=== PATIENT | female | born 1970 | race Two or more races ===

== ENCOUNTER 2025-03-21 09:00 | Outpatient (RCR) | payer MEDICAID, SELFPAY ==
--- NOTE | 2025-03-19 10:44 | PT.OIERPT ---
PT OP Initial Eval Patient Information Outpatient Physical Therapy Treatment Date: 03/19/25 Visit Reasons: left knee pain Medical Diagnosis: M17.12 Treatment Dx #1: L knee pain Start of Care: 03/19/25 Date of Onset: 1 yr ago Smoking Status Smoking Status: Never smoker Initial Assessment Subjective: Pt is 54 yr old female who reports L knee pain x1 yr. When it first happened she couldn't put weight on the L knee for a few days and she used crutches and an immobilizer brace. Increased pain with full extension, walking and she limps to not put full weight through the knee. PMH: DM Imaging: Mild narrowing medial joint space? Pt goal: less L knee pain in order to walk further Objective: L knee ArOM: Strength: Flexion: 95 deg 3-/5 Extension: -10 deg 3+/5 SLR: 40 deg with pain Melanie's: positive Varus stress: positive for medial joint line pain Assessment: Pt presents with L knee rotation sensitivity and pain with WB consistent with meniscus tear. Pt has limited knee extension and significant hamstring weakness. Pt may benefit from skilled therapy and has poor/fair rehab potential to meet goals. PT recommends further diagnostic imaging of L knee such as MRI. Short Term and Long-Term Goals 1. Ind with HEP ? 2. Improved knee flexion ROM to 110 deg ? 3. Improved HS and quad strength to 4/5 4. Ambulate community distances with <=3/10 L knee pain Treatment Plan ? 1. Manual therapy ? 2. Therex ? 3. Modalities as indicated, moist heat, ice, estim Frequency and Duration: 2x a week for 6 visits. Insurance authorization expires 03/25 and we will need this extended or more visits authorized to continue past that date. Certification Dates: 03/19/25 to 06/16/25 Procedure Charges OP PT Eval Mod Complex 30 minutes: Yes
--- NOTE | 2025-03-20 14:46 | PT.ODAYNRPT ---
PT Outpatient Daily Note OP Daily Note Outpatient Physical Therapy Treatment Date: 03/20/25 Visit Reasons: left knee pain Subjective: Same as time of evaluation Objective: See F/S for therex Assessment: Moderate to high pain level with loading the L knee Plan: Continue per POC Length of Time (minutes) of Treatment: 30 Minutes Procedure Charges Therapeutic Exercise 30 minutes: Yes
--- NOTE | 2025-03-21 09:32 | PT.ODS1RPT ---
PT OP Progress/Discharge Note Date of Service: 03/21/25 Progress Note/DC Note Progress Note/Discharge Note: DC Note Patient Information Visit Reasons: left knee pain Service Continue Service or Discharge: Discharge Discharge Date: 03/21/25 Status Subjective: Continued L knee pain unchanged since starting therapy Objective: Same as time of evaluation Assessment: Pt attended the eval and 2 Rx sessions with limited progress with therapy visits. She is not making progress with goals and hasn't met goals due to pain with walking and loading the knee consistent with meniscus irritation. Pt would benefit from further diagnostic imaging of L knee such as MRI. Plan: D/C with HEP Procedure Charges Therapeutic Exercise 30 minutes: Yes
== END 2025-04-02 23:59 | disposition home or self-care (01) ==
LOC: CPTX 09:00
PROVIDERS: PCP Physician Assistant; Referring Provider Physician Assistant; Visit Provider Physician Assistant
DX: M25.562 Pain in left knee (principal); R53.1 Weakness; M17.12 Unilateral primary osteoarthritis, left knee; E11.9 Type 2 diabetes mellitus without complications
CPT/HCPCS: 97110; 97162